=== PATIENT | male | born 1945 | race Caucasian/White ===

== ENCOUNTER 2016-08-27 08:14 | Day surgery (SDC) | payer OTHER, BC ==
[~2016-08-27] VITALS: Ht 185.4 cm; Wt 113.0 kg
[~2016-08-27 08:14] MED LIST: CARVEDILOL25 MG PO; DIOVAN HCT 11 TABLET PO; LYRICA150 MG PO; ROPINIROLE HCL2 MG PO; ROPINIROLE HCL3 MG PO; VITAMIN B-6100 MG PO; VITAMIN B12 100MCG PO
== END 2016-08-27 15:05 | disposition home or self-care (01) ==
LOC: CATH 08:14
DX: I25.10 Atherosclerotic heart disease of native coronary artery without angina pectoris (principal); E11.69 Type 2 diabetes mellitus with other specified complication; R06.02 Shortness of breath; I10 Essential (primary) hypertension; G25.81 Restless legs syndrome; Z68.36 Body mass index [BMI] 36.0-36.9, adult
CPT/HCPCS: 93005; C1769; C1887; J1644; J2250; J3010